=== PATIENT | male | born 1945 | race Caucasian/White ===

== ENCOUNTER 2022-04-14 22:00 | Emergency (ER) | payer OTHER ==
[2022-04-14] MEDS ORDERED: Sodium Chloride 0.9% 1,000 ML IV ONE ×2 (22:05→22:35)
[2022-04-14] MEDS ORDERED: Sodium Chloride 0.9% 1,000 ML IV SCH (23:20)
[2022-04-14] MEDS ORDERED: Aspirin 81 MG Tab.Chew PO ONE (23:38)
[2022-04-14] MEDS ORDERED: Heparin Sodium/D5W 25,000 UNITS/500 ML BAG IV SCH (23:45)
[2022-04-14] MEDS ORDERED: Heparin Sodium 5,000 Units/ML Vial IVPUSH ONE ×2 (23:47)
[2022-04-14] MEDS ORDERED: Tenecteplase 50 MG Kit IV ONE (23:52)
[2022-04-15] LABS: CORONAVIRUS COVID-19 NAA NEGATIVE (NEGATIVE)
[2022-04-15] MEDS ORDERED: DOPamine/Dextrose 5%-Water 400 MG/250 ML BAG IV SCH (00:15)
== END 2022-04-15 02:00 ==
LOC: JD.ED 22:00
DX: I21.3 ST elevation (STEMI) myocardial infarction of unspecified site (principal); I10 Essential (primary) hypertension; I44.2 Atrioventricular block, complete; Z72.0 Tobacco use; Z20.822 Contact with and (suspected) exposure to COVID-19
CPT/HCPCS: 0240U; 36415; 71045; 80053; 82947; 84484; 85025; 93005; 96361; 96365; 96375; 99285; A9270; J1265; J1644; J3101; J7030

== ENCOUNTER 2022-07-02 13:21 | Inpatient (IN) | payer OTHER ==
[2022-07-02] MEDS ORDERED: Albuterol/Ipratropium 3.0-0.5 MG/3 ML Neb Soln NEB ONE (13:46)
[2022-07-02] MEDS ORDERED: Iopamidol 755 Mg/ML 100 ML Bottle IVPUSH ONE (14:28)
[2022-07-02] MEDS ORDERED: Sodium Chloride 0.9% 10 ML Syringe FLUSH ONE (14:30)
[2022-07-02] MEDS ORDERED: Furosemide 40 MG/4 ML VIAL IVPUSH ONE ×2 (14:43→18:15)
[2022-07-02] MEDS: Sodium Chloride 0.9% 10 ML Syringe FLUSH PRN ×2 (15:26→18:45)
[2022-07-02] MEDS ORDERED: Furosemide 40 MG/4 ML VIAL IVPUSH SCH (18:30)
[2022-07-02] MEDS ORDERED: Acetaminophen 325 MG Tab PO PRN (19:01)
[2022-07-02] MEDS ORDERED: Docusate Sodium 100 MG Cap PO PRN (19:01)
[2022-07-02] MEDS ORDERED: hydrALAZINE 20 MG/ML SDV IVPUSH PRN (19:01)
[2022-07-02] MEDS ORDERED: Acetaminophen/oxyCODONE 325-5 MG Tab PO PRN (19:01)
[2022-07-02] MEDS ORDERED: Ondansetron 4 MG/2 ML SDV IVPUSH PRN (19:01)
[2022-07-02] MEDS ORDERED: Psyllium Husk Powder Sugar Free 5.85 GM Packet PO PRN (19:01)
[2022-07-02] MEDS ORDERED: HYDROmorphone 0.5 MG/0.5 ML Syringe IVPUSH PRN (19:01)
[2022-07-02] MEDS ORDERED: Albuterol/Ipratropium 3.0-0.5 MG/3 ML Neb Soln NEB PRN (19:01)
[2022-07-02] MEDS: atorvaSTATin 40 MG Tab PO SCH (22:22)
[2022-07-02] MEDS: Heparin Sodium 5,000 Units/ML Vial SUBCUT SCH (22:22)
[2022-07-03] MEDS: Heparin Sodium 5,000 Units/ML Vial SUBCUT SCH ×4 (05:28→22:14)
[2022-07-03] MEDS ORDERED: Furosemide 40 MG/4 ML VIAL IVPUSH ONE (08:58)
[2022-07-03] MEDS ORDERED: Metoprolol Succinate 50 MG Tab.ER PO SCH (09:00)
[2022-07-03] MEDS ORDERED: Non-Formulary Medication 1 Each (Aspirin [Vazalore] 81 MG Capsule) PO SCH (09:00)
[2022-07-03] MEDS ORDERED: ROFLUMILAST 250 MCG PO SCH (09:00)
[2022-07-03] MEDS ORDERED: POTASSIUM CITRATE 99 MG PO SCH (09:00)
[2022-07-03] MEDS: Potassium Chloride 20 MEQ Tab.ER PO SCH ×2 (09:51→20:12)
[2022-07-03] MEDS: Clopidogrel 75 MG Tab PO SCH (09:51)
[2022-07-03] MEDS: Aspirin 81 MG Tab.EC PO SCH (09:52)
[2022-07-03] MEDS: guaiFENesin 600 MG Tab.ER PO SCH ×2 (11:47→20:12)
[2022-07-03] MEDS: ROFLUMILAST 500 MCG PO SCH (11:48)
[2022-07-03] MEDS: Furosemide 40 MG/4 ML VIAL IVPUSH SCH (13:58)
[2022-07-03] MEDS ORDERED: Sodium Ferric Gluconate Cmplex 125 MG in Sodium Chloride 0.9% 100 ML IV ONE (15:19)
[2022-07-03] MEDS: Amiodarone 200 MG Tab PO SCH (16:41)
[2022-07-03] MEDS: atorvaSTATin 40 MG Tab PO SCH (20:12)
[2022-07-03] MEDS: Formoterol/Mometasone 100-5 MCG 8.8 GM Inhaler IH SCH (21:46)
[2022-07-04] MEDS: Heparin Sodium 5,000 Units/ML Vial SUBCUT SCH (05:44)
[2022-07-04] MEDS: Furosemide 40 MG/4 ML VIAL IVPUSH SCH (05:44)
[2022-07-04] MEDS ORDERED: Magnesium Sulfate/Water 2 GM in Premix Bag 1 BAG IV ONE (07:28)
[2022-07-04] MEDS: Formoterol/Mometasone 100-5 MCG 8.8 GM Inhaler IH SCH (08:10)
[2022-07-04] MEDS ORDERED: Metoprolol Succinate 25 MG Tab.ER PO SCH (09:00)
[2022-07-04] MEDS: Clopidogrel 75 MG Tab PO SCH (09:50)
[2022-07-04] MEDS: Aspirin 81 MG Tab.EC PO SCH (09:50)
[2022-07-04] MEDS: Potassium Chloride 20 MEQ Tab.ER PO SCH (09:50)
[2022-07-04] MEDS: guaiFENesin 600 MG Tab.ER PO SCH (09:50)
[2022-07-04] MEDS: ROFLUMILAST 500 MCG PO SCH (09:52)
[2022-07-04] MEDS: Amiodarone 200 MG Tab PO SCH (09:52)
== END 2022-07-04 13:35 | disposition home health service (06) | DRG 280 ==
LOC: JD.ED 13:21 → JD.MS 18:38
PROVIDERS: ADMIT Internal Medicine; ATTEND Internal Medicine
DX: I11.0 Hypertensive heart disease with heart failure (principal); I21.A1 Myocardial infarction type 2; I50.33 Acute on chronic diastolic (congestive) heart failure; J98.11 Atelectasis; R64 Cachexia; I71.40 Abdominal aortic aneurysm, without rupture, unspecified; J43.2 Centrilobular emphysema; R09.02 Hypoxemia; E78.5 Hyperlipidemia, unspecified; D50.9 Iron deficiency anemia, unspecified; I35.1 Nonrheumatic aortic (valve) insufficiency; Z95.5 Presence of coronary angioplasty implant and graft; Z99.81 Dependence on supplemental oxygen; I25.2 Old myocardial infarction; Z79.51 Long term (current) use of inhaled steroids; Z86.16 Personal history of COVID-19; Z79.82 Long term (current) use of aspirin; Z79.899 Other long term (current) drug therapy; Z87.891 Personal history of nicotine dependence; Z68.20 Body mass index [BMI] 20.0-20.9, adult
CPT/HCPCS: 36415; 71046; 71046-26; 71275; 71275-26; 80048; 80053; 82272; 83540; 83735; 83880; 84466; 84484; 85014; 85018; 85025; 85379; 86140; 93005; 93010; 93307; 94640; 94760; 94762; 96374; 97116-GP; 97161-GP; 97166-GO; 99223; 99239; 99285; 99285-25; A9270-GY; J1644; J1940; J2916; J3475; J3490; J7620-GY; Q9967

== ENCOUNTER 2022-07-06 12:21 | Emergency (ER) | payer OTHER ==
[2022-07-06] MEDS ORDERED: Sodium Chloride 0.9% 10 ML Syringe FLUSH PRN (13:32)
[2022-07-06] MEDS ORDERED: Furosemide 20 MG/2 ML VIAL IVPUSH ONE (14:55)
== END 2022-07-06 15:30 | disposition home or self-care (01) ==
LOC: JD.ED 12:21
DX: I11.0 Hypertensive heart disease with heart failure (principal); I50.9 Heart failure, unspecified; E78.00 Pure hypercholesterolemia, unspecified; J44.9 Chronic obstructive pulmonary disease, unspecified; Z87.891 Personal history of nicotine dependence; Z79.82 Long term (current) use of aspirin; Z79.899 Other long term (current) drug therapy; Z79.02 Long term (current) use of antithrombotics/antiplatelets
CPT/HCPCS: 36415; 71045; 80053; 83880; 85025; 96374; 99285; J1940; J3490; 99284